=== PATIENT | male | born 1980 | race Caucasian/White ===

== ENCOUNTER 2021-03-10 02:43 | Emergency (ER) | payer SELFPAY ==
[~2021-03-10] VITALS: Ht 165.1 cm; Wt 100.0 kg
[2021-03-10 02:50] VITALS: TEMP 97.9
[2021-03-10 04:23] VITALS: BP 137/83; PULSE 67
== END 2021-03-10 04:20 | disposition home or self-care (01) ==
LOC: COL.ER 02:43
DX: R21 Rash and other nonspecific skin eruption (principal)
CPT/HCPCS: J8540